=== PATIENT | female | born 1980 | race Caucasian/White ===

== ENCOUNTER 2019-04-15 05:15 | Inpatient (IN) | payer OTHER ==
[2019-04-15] MEDS: LACTATED RINGER'S 1,000 ML IV ×3 (06:15→09:47)
[2019-04-15] MEDS ORDERED: CEFAZOLIN 2 GM/50 ML (PMX) 50 ML IVPB (06:30)
[2019-04-15] MEDS ORDERED: METHYLERGONOVINE 0.2 MG INJ IM ×3 (06:30→11:00)
[2019-04-15] MEDS ORDERED: MISOPROSTOL 200 MCG TAB PR ×3 (06:30→11:00)
[2019-04-15] MEDS ORDERED: OXYTOCIN 30 UNITS/LR 500 ML IV ×3 (06:30→11:00)
[2019-04-15] MEDS ORDERED: CARBOPROST 250 MCG INJ IM ×3 (06:30→11:00)
[2019-04-15 06:48] LABS: ADD MAN DIFF? NO
[2019-04-15 06:53] LABS: ABNORMAL IP MESSAGE 1; BASOPHILS % 0.3 % (0.0-2.0); EOSINOPHILS % 0.4 % (0.0-7.0); HEMOGLOBIN 13.3 g/dl (12.0-16.0); LYMPHOCYTES # 1.7 10^3/ul (0.8-2.9); LYMPHOCYTES % 17.3 % (15.0-51.0); MEAN CORPUSCULAR HEMOGLOBIN 31.7 pg (29.0-33.0); MEAN CORPUSCULAR HGB CONC 34.1 g/dl (32.0-37.0); MEAN CORPUSCULAR VOLUME 93.1 fl (82.0-101.0); MONOCYTE # 0.9 10^3/ul (0.3-0.9); MONOCYTES % 9.2 % (0.0-11.0); NEUTROPHIL # 6.9 10^3/ul (1.6-7.5); NEUTROPHILS % 72.2 % (39.0-77.0); PLATELET COUNT 115 10^3/UL (140-415); RED BLOOD COUNT 4.19 10^6/ul (4.20-5.40); RED CELL DISTRIBUTION WIDTH 13.8 % (11.5-14.5)
[2019-04-15 06:53] LABS: WHITE BLOOD COUNT 9.6 10^3/ul (4.8-10.8)
[2019-04-15] MEDS ORDERED: OXYTOCIN 10 UNIT INJ ×2 (07:00→07:56)
[2019-04-15 07:05] LABS: POSITIVE DIFF @See below
[2019-04-15 07:15] LABS: INR 0.84; PROTIME 11.6 Sec (11.9-14.9); PT RATIO 0.9
[2019-04-15 07:16] LABS: PARTIAL THROMBOPLASTIN TIME 27.2 Sec (23.0-35.0)
[2019-04-15 07:19] LABS: ALANINE AMINOTRANSFERASE 26 IU/L (13-69); ALBUMIN 3.5 g/dl (3.3-4.9); ALBUMIN/GLOBULIN RATIO 1.02; ALKALINE PHOSPHATASE 197 IU/L (42-121); ANION GAP 9 (5-13); ASPARTATE AMINO TRANSFERASE 26 IU/L (15-46); BILIRUBIN,INDIRECT 0.6 mg/dl (0-1.1); BILIRUBIN,TOTAL 0.6 mg/dl (0.2-1.3); BLOOD UREA NITROGEN 11 mg/dl (7-20); CARBON DIOXIDE 20 mmol/L (21-31); CHLORIDE 110 mmol/L (97-110); CREATININE 0.54 mg/dl (0.44-1.00); Estimated GFR > 60 mL/min (>60); GLUCOSE 84 mg/dl (70-220); POTASSIUM 3.8 mmol/L (3.5-5.1); SODIUM 139 mmol/L (135-144); TOTAL PROTEIN 6.9 g/dl (6.1-8.1); URIC ACID 7.1 mg/dl (3.1-7.9)
[2019-04-15 07:23] LABS: ADD UMIC YES; UR ASCORBIC ACID 20 mg/dL (NEGATIVE); UR BACTERIA FEW /HPF (NONE SEEN); UR BILIRUBIN (Dip) NEGATIVE (NEGATIVE); UR BLOOD (Dip) NEGATIVE (NEGATIVE); UR CLARITY SLIGHTLY CLOUDY (CLEAR); UR COLOR YELLOW (YELLOW); UR GLUCOSE (Dip) NEGATIVE (NEGATIVE); UR KETONES (Dip) 1+ mg/dL (NEGATIVE); UR LEUKOCYTE ESTERASE (Dip) NEGATIVE Leu/ul (NEGATIVE); UR MUCUS FEW /HPF (NONE SEEN); UR NITRITE (Dip) NEGATIVE (NEGATIVE); UR RBC 1 /HPF (0-5); UR SPECIFIC GRAVITY (Dip) 1.019 (1.003-1.030); UR SQUAMOUS EPITHELIAL CELL MODERATE /HPF (FEW); UR TOTAL PROTEIN (Dip) 2+ mg/dl (NEGATIVE); UR UROBILINOGEN (Dip) NEGATIVE (NEGATIVE); UR WBC 1 /HPF (0-5)
[2019-04-15] MEDS ORDERED: morphine SULFATE/PF (10 MG/10 ML) INJ ×2 (07:56→08:28)
[2019-04-15] MEDS ORDERED: ONDANSETRON 4 MG INJ (07:56)
[2019-04-15] MEDS ORDERED: morphine 2 MG INJ IV (09:00)
[2019-04-15] MEDS ORDERED: KETOROLAC 30 MG INJ IV (09:00)
[2019-04-15] MEDS ORDERED: ONDANSETRON 4 MG INJ IV ×2 (09:00→11:00)
[2019-04-15] MEDS ORDERED: DIPHENHYDRAMINE 50 MG INJ IV ×2 (09:00→11:00)
[2019-04-15] MEDS ORDERED: NALOXONE (0.4 MG/ML) INJ IV (09:00)
[2019-04-15] MEDS ORDERED: FENTAnyl 50 MCG/ML VIAL (09:10)
[2019-04-15] MEDS ORDERED: LANOLIN HPA 1 PKT TOP ×2 (10:00→11:00)
[2019-04-15] MEDS ORDERED: HYDROCODONE/APAP (5/325) TAB PO ×3 (10:00→11:00)
[2019-04-15] MEDS ORDERED: MAGNESIUM SULFATE 4 GM/100 ML 100 ML IVPB (10:00)
[2019-04-15] MEDS ORDERED: METHYLERGONOVINE 0.2 MG TAB PO (10:00)
[2019-04-15] MEDS ORDERED: NA PHOSPHATE/BIPHOS 133 ML ENEMA PR (10:00)
[2019-04-15 10:07] LABS: HEPATITIS B SURFACE ANTIGEN NEGATIVE (NEGATIVE)
[2019-04-15] MEDS: OXYTOCIN 30 UNITS/LR 500 ML IV ×2 (10:28→13:32)
[2019-04-15] MEDS: LACTATED RINGER'S 1,000 ML IV* ×3 (10:48→20:41)
[2019-04-15] MEDS: MAGNESIUM SULFATE 4 GM/100 ML 100 ML IVPB ×2 (11:00→12:15)
[2019-04-15] MEDS ORDERED: ONDANSETRON 4 MG TAB PO (11:00)
[2019-04-15] MEDS ORDERED: ACETAMINOPHEN 325 MG TAB PO ×2 (11:00)
[2019-04-15] MEDS ORDERED: SENNA/DOCUSATE NA (8.6MG/50MG) TAB PO (11:00)
[2019-04-15] MEDS ORDERED: DIPHENHYDRAMINE 25 MG CAP PO (11:00)
[2019-04-15] MEDS ORDERED: DIBUCAINE 1% 30 GM OINT TOP (11:00)
[2019-04-15] MEDS: IBUPROFEN 800 MG TAB PO ×2 (12:00→18:00)
[2019-04-15] MEDS: MAGNESIUM SULFATE 20 GM/500 ML 500 ML IV ×2 (12:29→20:43)
[2019-04-15] MEDS: KETOROLAC 30 MG INJ IV ×2 (12:32→18:36)
[2019-04-15] MEDS ORDERED: IBUPROFEN 800 MG TAB PO (14:00)
[2019-04-15] MEDS: CEFAZOLIN 2 GM/50 ML (PMX) 50 ML IVPB ×2 (15:04→23:15)
[2019-04-15 16:55] LABS: RAPID PLASMA REAGIN NONREACTIVE (NR)
[2019-04-15 18:20] LABS: MAGNESIUM 5.6 mg/dl (1.7-2.5)
[2019-04-15] MEDS: SENNA/DOCUSATE NA (8.6MG/50MG) TAB PO (21:00)
[2019-04-15] MEDS: LABETALOL 100 MG TAB PO (21:00)
[2019-04-16] MEDS: KETOROLAC 30 MG INJ IV ×2 (00:06→06:36)
[2019-04-16 00:42] LABS: MAGNESIUM 5.2 mg/dl (1.7-2.5)
[2019-04-16] MEDS: CEFAZOLIN 2 GM/50 ML (PMX) 50 ML IVPB (06:36)
[2019-04-16 07:06] LABS: ADD MAN DIFF? NO
[2019-04-16 07:09] LABS: ABNORMAL IP MESSAGE 1; BASOPHILS % 0.2 % (0.0-2.0); EOSINOPHILS % 0.2 % (0.0-7.0); HEMATOCRIT 30.7 % (37.0-47.0); HEMOGLOBIN 10.3 g/dl (12.0-16.0); LYMPHOCYTES # 0.9 10^3/ul (0.8-2.9); LYMPHOCYTES % 7.6 % (15.0-51.0); MEAN CORPUSCULAR HEMOGLOBIN 31.9 pg (29.0-33.0); MEAN CORPUSCULAR HGB CONC 33.6 g/dl (32.0-37.0); MONOCYTE # 0.8 10^3/ul (0.3-0.9); MONOCYTES % 6.3 % (0.0-11.0); NEUTROPHIL # 10.2 10^3/ul (1.6-7.5); NEUTROPHILS % 85.4 % (39.0-77.0); PLATELET COUNT 112 10^3/UL (140-415); RED BLOOD COUNT 3.23 10^6/ul (4.20-5.40); RED CELL DISTRIBUTION WIDTH 13.7 % (11.5-14.5)
[2019-04-16 07:09] LABS: WHITE BLOOD COUNT 11.9 10^3/ul (4.8-10.8)
[2019-04-16 07:12] LABS: POSITIVE DIFF @See below
[2019-04-16 07:27] LABS: ALANINE AMINOTRANSFERASE 19 IU/L (13-69); ALBUMIN 2.6 g/dl (3.3-4.9); ALBUMIN/GLOBULIN RATIO 0.96; ALKALINE PHOSPHATASE 135 IU/L (42-121); ANION GAP 4 (5-13); ASPARTATE AMINO TRANSFERASE 26 IU/L (15-46); BILIRUBIN,INDIRECT 0.4 mg/dl (0-1.1); BILIRUBIN,TOTAL 0.4 mg/dl (0.2-1.3); BLOOD UREA NITROGEN 7 mg/dl (7-20); CALCIUM 6.3 mg/dl (8.4-10.2); CARBON DIOXIDE 24 mmol/L (21-31); CHLORIDE 105 mmol/L (97-110); CREATININE 0.56 mg/dl (0.44-1.00); Estimated GFR > 60 mL/min (>60); GLUCOSE 88 mg/dl (70-220); POTASSIUM 3.9 mmol/L (3.5-5.1); SODIUM 133 mmol/L (135-144); TOTAL PROTEIN 5.3 g/dl (6.1-8.1); URIC ACID 6.6 mg/dl (3.1-7.9)
[2019-04-16 07:29] LABS: PROTIME 12.3 Sec (11.9-14.9)
[2019-04-16 07:30] LABS: PARTIAL THROMBOPLASTIN TIME 28.8 Sec (23.0-35.0)
[2019-04-16 07:58] LABS: MAGNESIUM 6.1 mg/dl (1.7-2.5)
[2019-04-16] MEDS: LABETALOL 100 MG TAB PO ×2 (09:00→21:00)
[2019-04-16] MEDS: SENNA/DOCUSATE NA (8.6MG/50MG) TAB PO ×2 (09:20→21:39)
[2019-04-16] MEDS: IBUPROFEN 800 MG TAB PO ×3 (12:04→23:51)
[2019-04-16] MEDS: BISACODYL (EC) 5 MG TAB PO (14:27)
[2019-04-16] MEDS: MAGNESIUM HYDROXIDE 30ML CUP PO (21:39)
[2019-04-17] MEDS: HYDROCODONE/APAP (5/325) TAB PO ×2 (04:18→23:13)
[2019-04-17] MEDS: IBUPROFEN 800 MG TAB PO ×3 (06:21→17:38)
[2019-04-17] MEDS: MAGNESIUM HYDROXIDE 30ML CUP PO (08:11)
[2019-04-17] MEDS: SENNA/DOCUSATE NA (8.6MG/50MG) TAB PO ×2 (08:11→21:20)
[2019-04-17] MEDS: VARICELLA VACCINE LIVE/PF 1,350 UNIT/0.5 ML ML SC* (09:00)
[2019-04-17] MEDS ORDERED: DIPHTH/TET/ACEL PERTUSS (ADULT) 0.5 ML VIAL IM* (09:00)
[2019-04-17] MEDS: MEASLES,MUMPS,RUBELLA VACCINE INJ SC* (09:00)
[2019-04-17] MEDS: LABETALOL 100 MG TAB PO ×2 (09:00→21:29)
[2019-04-18] MEDS: IBUPROFEN 800 MG TAB PO ×3 (00:06→12:05)
[2019-04-18] MEDS ORDERED: MEASLES,MUMPS,RUBELLA VACCINE INJ SC* (09:00)
[2019-04-18] MEDS: LABETALOL 100 MG TAB PO (09:44)
[2019-04-18] MEDS: SENNA/DOCUSATE NA (8.6MG/50MG) TAB PO (09:44)
[2019-04-18] MEDS: DIPHTH/TET/ACEL PERTUSS (ADULT) 0.5 ML VIAL IM* (12:07)
== END 2019-04-18 15:38 | disposition home or self-care (01) | DRG 785 ==
LOC: L-D 05:15 → PP1 17:09
PROC: 10D00Z1 Extraction of Products of Conception, Low, Open Approach (ICD-10-PCS; principal; 2019-04-15 07:30)
PROC: 0UB70ZZ Excision of Bilateral Fallopian Tubes, Open Approach (ICD-10-PCS; 2019-04-15 07:30)
PROC: 0UN90ZZ Release Uterus, Open Approach (ICD-10-PCS; 2019-04-15 07:30)
PROC: 0WQF0ZZ Repair Abdominal Wall, Open Approach (ICD-10-PCS; 2019-04-15 07:30)
PROC: 0UB10ZZ Excision of Left Ovary, Open Approach (ICD-10-PCS; 2019-04-15 07:30)
PROC: 0U510ZZ Destruction of Left Ovary, Open Approach (ICD-10-PCS; 2019-04-15 07:30)
DX: O34.211 Maternal care for low transverse scar from previous cesarean delivery (principal); O99.89 Other specified diseases and conditions complicating pregnancy, childbirth and the puerperium; N73.6 Female pelvic peritoneal adhesions (postinfective); K42.9 Umbilical hernia without obstruction or gangrene; N83.202 Unspecified ovarian cyst, left side; O34.83 Maternal care for other abnormalities of pelvic organs, third trimester; O90.81 Anemia of the puerperium; O16.4 Unspecified maternal hypertension, complicating childbirth; O75.89 Other specified complications of labor and delivery; Z3A.39 39 weeks gestation of pregnancy; Z37.0 Single live birth; Z30.2 Encounter for sterilization; Z23 Encounter for immunization
CPT/HCPCS: 80053; 81001; 83735; 84560; 85025; 85384; 85610; 85730; 86592; 86850; 86900; 86901; 87340; 88302; 90715; 90716; 93005; 99464